=== PATIENT | female | born 1995 | race African-American/Black ===

== ENCOUNTER 2018-04-24 15:06 | Outpatient (CLI) | payer SELFPAY ==
[2018-04-24] MEDS ORDERED: LIDOCAINE 1% INJ-PF (10 MG/ML) 30 ML SDV ONE (15:57)
--- NOTE | 2018-04-24 16:41 | L&D Progress Notes ---
PROGRESS NOTES Datetime Report Generated by CPN: 04/24/2018 16:41 PROGRESS NOTE Impression Other: home delivery w/2nd dgevaginal lac Procedures- Other: lac repair Plan: Continue Present Management; Discharge Vital Signs : Reviewed; Within Normal Limits Comment: Pt presented to L_D at approx 1545 after delivering vaginal delivery at home around 1045. She also delivered her placenta at home. Second degree vaginal lac, repaired with 2-0 vicryl. Pt desires to leave and go to work. SIGNATURE SIGNATURE: [id number] Signature: with User ID: [email or web address]
[2018-04-24] MEDS ORDERED: BENZOCAINE/MENTHOL AEROSOL SPRAY 56 ML ONE (17:23)
[2018-04-26 11:39] LABS: HEPATITIS C VIRUS AB <0.1 s/co ratio (0.0-0.9)
[2018-04-26 13:48] LABS: HEPATITS B SURFACE ANTIGEN Negative (Negative)
== END 2018-04-24 19:29 | disposition home or self-care (01) ==
LOC: LC 15:06
PROVIDERS: ATTEND Obstetrics & Gynecology
PROC: 0UQGXZZ Repair Vagina, External Approach (ICD-10-PCS; principal; 2018-04-24)
DX: O71.4 Obstetric high vaginal laceration alone (principal)
CPT/HCPCS: 57200; 86900; 86901; 36415; 86850; 86592; 87340; 86701; 86803; 86804; J3490 ×2